=== PATIENT | male | born 1995 | race Caucasian/White ===

== ENCOUNTER → 2017-06-05 | Outpatient (CLI) | payer BC ==
[~2017-06-05] VITALS: Ht 271.8 cm; Wt 84.4 kg
[2017-06-05 11:29] VITALS: BP 109/72; PULSE 65; Ht 271.8 cm; Wt 84.4 kg
== END | disposition home or self-care (01) ==
LOC: C.NEUR 10:55
PROVIDERS: ATTEND Internal Medicine Pulmonary Disease
DX: G47.13 Recurrent hypersomnia (principal); J30.9 Allergic rhinitis, unspecified; R53.83 Other fatigue